=== PATIENT | female | born 1965 | race Caucasian/White ===

== ENCOUNTER 2023-01-06 16:20 | Emergency (ER) | payer BC ==
--- NOTE | 2023-01-06 16:32 | ED Physician Documentation ---
PD HPI LOWER EXT INJURY - Stated complaint Stated Complaint: RT LEG PX - Chief complaint Chief Complaint: Ext Problem - History obtained from History obtained from: Patient - History of Present Illness PD HPI LOW EXT INJURY LOCATION: Right, Knee Type of injury: No: Fall, Twist Where injury occurred: Home Timing - onset: How many hours ago (about 3 hours ago, whil just walking regular, noted an onset of severe right lower thigh to medial knee pain on right without obvious injury. She does sates she/ are moving houses to [facility] and they have been doing a lot of standing/ packing/ lifting. has had feeling of thigh cramping.) Timing - duration: Hours (3) Timing - details: Abrupt onset, Still present Worsened by: Palpating (tender to palpation medial right lower thigh and more at the anteriomedial knee. Denies locking/ clicking/ giving out. Hurts with walking and standing as well as the palpation.) Associated symptoms: No: Weakness, Numbness, Swelling Similar symptoms before: Has not had sx before Review of Systems Constitutional: denies: Fever, Chills Skin: denies: Rash, Lesions Neurologic: denies: Focal weakness, Numbness PD PAST MEDICAL HISTORY - Past Medical History Cardiovascular: None Respiratory: None Musculoskeletal: Fibromyalgia - Present Medications Home Medications: Ambulatory Orders Medication Instructions Recorded Confirmed Levothyroxine Sodium [Synthroid] 150 mcg PO DAILY 01/06/23 01/06/23 Meloxicam [Mobic] 7.5 mg PO BID 10 Days #20 tablet 01/06/23 methocarbamoL [Robaxin] 500 mg PO Q6H PRN #25 tablet 01/06/23 oxyCODONE [Roxicodone] 5 mg PO Q6H PRN #20 tablet 01/06/23 - Allergies Allergies/Adverse Reactions: Allergies Allergy/AdvReac Type Severity Reaction Status Date / Time Penicillins Allergy Anaphylaxis Verified 01/06/23 16:28 PD ED PE NORMAL - Vitals Vital signs reviewed: Yes - General General: Alert and oriented X 3, Well developed/nourished, Other (appears in pain due to anterior thigh and medial knee. No knee effusion. ) - Back Back: No spinal TTP, Other (no tenerness in the SI area. ) - Derm Derm: Normal color, Warm and dry, No rash - Extremities Extremities: No deformity (cruciate and collateral stress testing without laxity and only some pain medially on valgus stress. No laxity. No joint effusion. ), No edema, No calf tenderness / cord, Other (right anterior mid to medial distal thigh with soft tissue/muscle tenderness. There is marked tenderness right medial knee without effusion. No redness nor sores. Tenderness is in area of pes anserinus bursa. ) - Neuro Neuro: Alert and oriented X 3, No motor deficit, No sensory deficit, Normal speech Results - Vitals Vitals: Vital Signs - 24 hr 01/06/23 01/06/23 16:24 17:59 Temperature 36.7 C Heart Rate 78 59 L Respiratory 18 17 Rate Blood Pressure 118/76 122/68 O2 Saturation 99 99 Oxygen O2 Source Room air - Rads (name of study) right knee Relevant Findings:: Prelim report reviewed (tricompartment arthritis and small joint space left. ), EMP independent interpretation of test (arthritic changes. No fractures nor effusion. ), See rad report PD Medical Decision Making - ED course Complexity details: reviewed results (arthritic knee without effusion. ), considered differential (abrupt onset of pain is suspicious for MCL or meniscal process. But was not forceful injury and exam is c/w muscular or tendon/bursa area. Cruciate and collateral testing is intact. Some pain on valgus stress but no laxity. ), d/w patient ED course: Presume she has had some muscle injry with the current moving/packing/and on feet most of day. Now with the abrupt pain, could be just at tipping point for pain or has some partial fiber tear/etc. rather than internal knee derangement. I believe either are treatable with knee brace and meds initially with close rotho follow up. If persisting notably, then follow up PMD/Ortho and they could consider PT/change meds/advanced imaging. However I think this well be getting better and not need further treatments beyond outined by us. Patient improved reasonably with IM med. Knee brace by manager product management. Patient comfortable on discharge. Departure - Departure Disposition: 01 Home, Self Care Clinical Impression: Acute pain of right knee, Quadriceps tendinitis Condition: Stable Record reviewed to determine appropriate education?: Yes Instructions: Tendonitis and Tenosynovitis Follow-Up: Orthopedic Care [Provider Group] Prescriptions: Meloxicam [Mobic] 7.5 mg PO BID 10 Days #20 tablet methocarbamoL [Robaxin] 500 mg PO Q6H PRN #25 tablet PRN Reason: Spasms oxyCODONE [Roxicodone] 5 mg PO Q6H PRN #20 tablet PRN Reason: Pain Comments: Your knee x-ray shows arthritis of the knee and some calcification of the patellar tendon. None of these would be acute but could be contributing to some of the pain in the knee. However the area of tenderness in the distribution of the pain sound more likely to be some tendinitis and bursitis of the thigh muscles attaching down to the inside of the knee. This would actually be a little bit easier to improve then would be ligaments or cartilage of the knee itself. However can still take a while to improve. At this point we will go with a knee brace to help support the muscles and movement around the knee. Use it when up and around and can even leave it on when rested if it feels more comfortable. Anti-inflammatories regularly. This evening you can use ibuprofen every 6-8 hours. I wrote for a longer duration anti-inflammatory called meloxicam so can be just twice daily with food for the next 7 to 10 days. To that add methocarbamol if needed for worse stiffness or spasms of the thigh muscles. To that add Tylenol 650 mg 4 times daily for pain as needed and supplement with oxycodone every 6 hours if needed for worse pain. I sent prescriptions to [facility] pharmacy. Follow-up with your primary care or the orthopedic office if not improving well over the next week. Return if worse or if new symptoms develop such as swelling, numbness, rash, weakness etc. Discharge Date/Time: 01/06/23 18:07
[2023-01-06] MEDS ORDERED: HYDROmorphone 1 MG/ML CARPUJECT IM STA (16:48)
--- NOTE | 2023-01-06 17:39 | XRAY Report ---
PROCEDURE: Knee 3 View RT INDICATIONS: acute medial knee pain TECHNIQUE: 3 views of the right knee(s) were acquired. COMPARISON: None. FINDINGS: Bones: No fractures or dislocations. No suspicious bony lesions. Severe tricompartmental degenera tive changes of the right knee with moderate marginal osteophyte formation. Significant joint space l oss of the medial femoral tibial compartment. Soft tissues: No substantial knee joint effusion. No suspicious soft tissue calcifications or masses . IMPRESSION: No acute bony abnormality. Severe tricompartmental osteoarthrosis of the right knee. Medial compartment joint space narrowing. Reviewed by: Calixto Wise MD on 01/06/2023 5:37 PM PDT Approved by: Calixto Wsie MD on 01/06/2023 5:37 PM PDT Station ID: [id number]
[2023-01-06] MEDS ORDERED: methocarbamoL 500 MG TABLET PO STA (17:42)
[2023-01-06] MEDS ORDERED: ACETAMINOPHEN 500 MG TABLET PO STA (17:42)
[2023-01-06] MEDS ORDERED: oxyCODONE/ACET 5/325 Prepack 4 PO STA (17:42)
[2023-01-06 18:04] VITALS: BP 122/68
== END 2023-01-06 18:07 | disposition home or self-care (01) ==
LOC: ED 16:20
DX: M76.9 Unspecified enthesopathy, lower limb, excluding foot (principal); M25.561 Pain in right knee; Z79.899 Other long term (current) drug therapy
CPT/HCPCS: 73562; 96372; 99283; 99284; A9270; J1170

== ENCOUNTER 2023-09-22 12:37 | Emergency (ER) | payer BC ==
[2023-09-22 12:47] VITALS: BP 156/88; O2SAT 98
--- NOTE | 2023-09-22 13:04 | ED Physician Documentation ---
History of Present Illness - Stated complaint Stated Complaint: RT HAND PINKY LAC - Chief complaint Chief Complaint: Laceration - History obtained from History obtained from: Patient - History of Present Illness Timing: Today Pain level max: 2 Pain level now: 2 - Additonal information Additional information: 57-year-old female presents to the emergency department for laceration to the right fifth digit from a mandolin slicer at home. Unable to get it to stop bleeding. She states that she is not up-to-date on tetanus that she had a localized swelling to a tetanus shot as a child. No rash. No difficulty speaking, swallowing or breathing. PD PAST MEDICAL HISTORY - Past Medical History Past Medical History: Yes Cardiovascular: None Respiratory: None Endocrine/Autoimmune: HyPOthyroidism Musculoskeletal: Fibromyalgia - Past Surgical History Past Surgical History: No - Present Medications Home Medications: Ambulatory Orders Medication Instructions Recorded Confirmed Levothyroxine Sodium [Synthroid] 150 mcg PO DAILY 01/06/23 01/06/23 Meloxicam [Mobic] 7.5 mg PO BID 10 Days #20 tablet 01/06/23 methocarbamoL [Robaxin] 500 mg PO Q6H PRN #25 tablet 01/06/23 oxyCODONE [Roxicodone] 5 mg PO Q6H PRN #20 tablet 01/06/23 - Allergies Allergies/Adverse Reactions: Allergies Allergy/AdvReac Type Severity Reaction Status Date / Time Penicillins Allergy Anaphylaxis Verified 01/06/23 16:28 Tetanus Vaccines and Toxoid AdvReac Edema Verified 09/22/23 12:40 - Social History Does the pt smoke?: No Smoking Status: Never smoker Does the pt drink ETOH?: No Does the pt have substance abuse?: No - Immunizations Immunizations are current?: No - POLST Patient has POLST: No PD ED PE NORMAL - Vitals Vital signs reviewed: Yes - General General: Alert and oriented X 3, No acute distress - HEENT HEENT: Moist mucous membranes - Derm Derm: Warm and dry - Extremities Extremities: Other (R 5th digit - small skin avulsion, 0.2cm. superficial, fingertip. no bony exposure. NVI) - Neuro Neuro: Alert and oriented X 3 - Psych Psych: Normal mood, Normal affect Results - Vitals Vitals: Vital Signs - 24 hr 09/22/23 12:40 Temperature 36.8 C Heart Rate 72 Respiratory 16 Rate Blood Pressure 156/88 H O2 Saturation 98 Oxygen O2 Source Room air Procedures - Laceration (location) R 5th finger Length in cm: 0.2 Wound type: Other (skin avulsion) Neurovascular status: Sensory intact, Motor intact, Vascular intact Tendon involvement: Tendon intact Wound preparation: Wound explored, To the base Skin layer closure: Dermabond Other: Patient tolerated well, No complications, Neurovascular intact, Tetanus booster given PD Medical Decision Making - ED course Complexity details: considered differential, d/w patient ED course: Patient with a small fingertip avulsion from a mandolin slicer at home. A finge r tourniquet was applied to stop the bleeding and then Dermabond was applied over the area. No further bleeding. We did discuss tetanus vaccination, patient states she would like a tetanus vaccination. We discussed risks and benefits. She has no history of an anaphylactic reaction. No history of systemic allergic reaction, only a local reaction to the vaccine as a child. Allergy precautions were given at bedside to the patient and her spouse. Informed that if she shows any signs of anaphylaxis that they need to return immediately to the emergency department or call 911. Warnings of infection and instructions on wound care given at bedside. Also counseled on how to minimize scarring. Patient counseled regarding signs and symptoms for which I believe and urgent re-evaluation would be necessary. Patient with good understanding of and agreement to plan and is comfortable going home at this time This document was made in part using voice recognition software. While efforts are made to proofread this document, sound alike and grammatical errors may occur. Departure - Departure Disposition: 01 Home, Self Care Clinical Impression: Finger laceration Qualifiers: Encounter type: initial encounter Finger: little finger Damage to nail status: without damage Foreign body presence: without foreign body Laterality: right Qualified Code(s): S61.216A - Laceration without foreign body of right little finger without damage to nail, initial encounter Condition: Good Instructions: ED Laceration Hand Follow-Up: your,doctor as needed [Other] Comments: Do not apply any ointment as this may dissolve the glue. The glue will fall off on its own. It can get wet. You can use Motrin or Tylenol as needed for any pain. Please follow-up with your doctor as needed for any further care. Return if you notice redness, swelling or drainage from the wound. You were given a tetanus shot today. If you have any rash, difficulty speaking, swallowing or difficulty breathing, please return immediately. These can be signs of an allergic reaction. You can also take Benadryl at the start of the symptoms or Zyrtec or Claritin. You will still need to be seen right away however. Forms: PCP List
[2023-09-22] MEDS: TETANUS/DIPHTHERIA/PERTUSSIS 0.5 ML SYRINGE IM ONE (13:09)
== END 2023-09-22 13:24 | disposition home or self-care (01) ==
LOC: ED 12:37
DX: S61.216A Laceration without foreign body of right little finger without damage to nail, initial encounter (principal); W26.8XXA Contact with other sharp object(s), not elsewhere classified, initial encounter; Y92.009 Unspecified place in unspecified non-institutional (private) residence as the place of occurrence of the external cause; Z23 Encounter for immunization; E03.9 Hypothyroidism, unspecified; M79.7 Fibromyalgia
CPT/HCPCS: 12001; 90471; 99282

== ENCOUNTER 2023-10-26 14:35 | Outpatient (CLI) | payer BC ==
--- NOTE | 2023-11-06 10:11 | Mammography Report ---
BILATERAL DIGITAL SCREENING MAMMOGRAM 3D/2D: 10/26/2023 CLINICAL: Routine screening. Comparison is made to exams dated: 07/17/2022 mammogram, 04/09/2020 mammogram, 10/11/2018 mammogram, 04/14 mammogram, and 11/16/2014 mammogram - [facility]. There are scattered areas of fibroglandular density in both breasts (category b / 25%-50% glandular t issue). No significant masses, calcifications, or other findings are seen in either breast. There has been no significant interval change. IMPRESSION: NEGATIVE There is no mammographic evidence of malignancy. A 1 year screening mammogram is recommended. Based on the Tyrer Cuzick model (a risk assessment model) the patient's lifetime risk is 13.7% and he r 10 year risk is 5.1%. According to the ACR, ACS, and NCCN guidelines, an annual breast MRI exam dotty ng with mammogram is recommended if the patient's lifetime risk is 20% or greater. This exam was interpreted at Station ID: [id number]. NOTE: For mammograms, a report in lay terms will be sent to the patient. Approximately 15% of breast malignancies will not be visualized mammographically. In the management of a palpable breast mass, a negative mammogram must not discourage biopsy of a clinically suspicious lesion. Electronically Signed By: Bin silva/michelle:11/05/2023 09:06:05 letter sent: No_Letter ACR BI-RADS Category 1: Negative [id number] PARENCHYMAL PATTERN: (A) - The breast(s) demonstrate(s) scattered fibroglandular densities. BI-RADS CATEGORY: (1) - 1 RECOMMENDATION: (ANNUAL) - Recommend routine annual screening mammography. [id number] 1 year screening LATERALITY: (B)
== END 2023-10-26 14:36 | disposition home or self-care (01) ==
LOC: DI 14:35
DX: Z12.31 Encounter for screening mammogram for malignant neoplasm of breast (principal); R92.323 Mammographic fibroglandular density, bilateral breasts

== ENCOUNTER 2024-01-12 14:29 | Outpatient (CLI) | payer BC ==
--- NOTE | 2024-01-14 01:32 | XRAY Report ---
PROCEDURE: Shoulder 2+V LT INDICATIONS: SHOULDER PX TECHNIQUE: 3 views of the shoulder were acquired. COMPARISON: None. FINDINGS: Bones: No acute fractures or dislocations. No suspicious bony lesions. Visualized ribs appear inta ct. Generalized osteopenia. Mild to moderate acromioclavicular joint osteoarthrosis. Mild degenerat paige spurring in the glenoid rim. Soft tissues: No suspicious soft tissue calcifications. The visualized lungs are within normal limi ts. IMPRESSION: Mild glenohumeral and mild to moderate acromioclavicular osteoarthrosis. Reviewed by: Zachery Friedman MD on 01/14/2024 1:31 AM PDT Approved by: Zachery Friedman MD on 01/14/2024 1:31 AM PDT Station ID: [id number]
== END 2024-01-12 14:30 | disposition home or self-care (01) ==
LOC: DI 14:29
PROVIDERS: ATTEND Internal Medicine
DX: M19.012 Primary osteoarthritis, left shoulder (principal)

== ENCOUNTER 2024-01-30 10:00 | Outpatient (CLI) | payer BC ==
[2024-01-30 10:25] LABS: ALBUMIN 4.5 g/dL (3.2-5.5); ALBUMIN/GLOBULIN RATIO 1.6 (1.0-2.2); ALKALINE PHOSPHATASE 61 IU/L (42-121); ALT ALANINE AMINOTRANSFERASE 16 IU/L (10-60); AST ASPARTATE AMINOTRANSFERASE 17 IU/L (10-42); BILIRUBIN,TOTAL 0.6 mg/dL (0.2-1.0); BUN - BLOOD UREA NITROGEN 17 mg/dL (6-20); CALCIUM 10.1 mg/dL (8.5-10.3); CARBON DIOXIDE - CO2 35 mmol/L (21-32); CHLORIDE 97 mmol/L (101-111); CHOLESTEROL 172 mg/dL; CREATININE 0.9 mg/dL (0.6-1.3); GFR - MDRD 64 (>89); GLUCOSE 111 mg/dL (74-104); HDL CHOLESTEROL 58 mg/dL; LDL CHOLESTEROL,CALCULATED 99 mg/dL; LDL/HDL RATIO 1.7 (<4.4); POTASSIUM 3.8 mmol/L (3.5-4.5); SODIUM 139 mmol/L (135-145); TOTAL PROTEIN 7.3 g/dL (6.4-8.9); TRIGLYCERIDES 74 mg/dL (48-352); VLDL CHOLESTEROL 15 mg/dL
[2024-01-30 10:40] LABS: THYROID STIMULATING HORMONE 0.16 uIU/mL (0.34-5.60)
== END 2024-01-30 10:01 | disposition home or self-care (01) ==
LOC: LAB 10:00
PROVIDERS: ATTEND Student in an Organized Health Care Education/Training Program
DX: E03.8 Other specified hypothyroidism (principal); E06.3 Autoimmune thyroiditis; Z13.220 Encounter for screening for lipoid disorders; Z13.1 Encounter for screening for diabetes mellitus
CPT/HCPCS: 36415; 80053; 80061; 83721; 84443